=== PATIENT | female | born 1960 | race Caucasian/White ===

== ENCOUNTER 2016-12-06 15:15 | Outpatient (RCR) | payer OTHER ==
[~2016-12-06 15:15] MED LIST: ALPHA LIPOIC AC50 M1 PO; ARTIFICIAL TEAR15 M2 OP; CANASA1000 M1 RC; CHOL; DYMISTA NASAL S23 GM NS; FLOVENT2 PUFFS INH; FLUTICASONE PRO16 G1 NASAL; GAVISCON LIQUI355 ML PO; LEXAPRO10 MG ORAL; LIDOCAINE700 M1 TP; MAGNESIUM CITR100 G1; MELATONIN1 M1 SL; NAC600 MG PO; NATURE-THROID32.5 MG PO; OMEGA-3100 M1 PO; PAMELOR10 MG ORAL; PULMICORT FLEX90 MCG IH; VICODIN 5-3001 EACH ORAL; VITAMIN B-12500 MC3 IM; VITAMIN C250 MG ORAL; ZINC CHELATED50 MG ORAL; [UNRECOGNIZED DRUG - CODE] PO; mulitvitamin PO
== END 2016-12-07 | disposition home or self-care (01) ==
LOC: PTY 15:15
DX: M54.40 Lumbago with sciatica, unspecified side (principal); G89.29 Other chronic pain
CPT/HCPCS: 97110; 97140; 97161; G0283

== ENCOUNTER 2016-12-27 16:05 | Outpatient (RCR) | payer OTHER | END 2017-01-06 | disposition home or self-care (01) | LOC: PTY 16:05 | DX: M54.40 Lumbago with sciatica, unspecified side (principal); G89.29 Other chronic pain | CPT/HCPCS: 97110; 97140; G0283 ==

== ENCOUNTER 2017-02-03 09:00 | Outpatient (RCR) | payer OTHER | END 2017-02-06 | disposition home or self-care (01) | LOC: PTY 09:00 | DX: M54.40 Lumbago with sciatica, unspecified side (principal); G89.29 Other chronic pain | CPT/HCPCS: 97110; 97140; G0283 ==

== ENCOUNTER 2017-03-18 14:46 | Outpatient (RCR) | payer OTHER | END 2017-04-06 | disposition home or self-care (01) | LOC: PTY 14:46 | DX: M54.40 Lumbago with sciatica, unspecified side (principal); G89.29 Other chronic pain | CPT/HCPCS: 97110; 97140; G0283 ==

== ENCOUNTER 2017-06-01 09:00 | Outpatient (RCR) | payer OTHER | END 2017-06-06 | disposition home or self-care (01) | LOC: PTY 09:00 | DX: M54.40 Lumbago with sciatica, unspecified side (principal); G89.29 Other chronic pain ==

== ENCOUNTER 2017-06-08 08:30 | Outpatient (RCR) | payer OTHER | END 2017-07-07 | disposition home or self-care (01) | LOC: PTY 08:30 | DX: M47.812 Spondylosis without myelopathy or radiculopathy, cervical region (principal) ==

== ENCOUNTER 2017-07-11 11:05 | Outpatient (RCR) | payer OTHER | END 2017-08-06 | disposition home or self-care (01) | LOC: PTY 11:05 | DX: M47.812 Spondylosis without myelopathy or radiculopathy, cervical region (principal) | CPT/HCPCS: 97032; 97110; 97140; G0283 ==